=== PATIENT | female | born 1945 | race Caucasian/White ===

== ENCOUNTER 2020-10-09 19:54 | Emergency (ER) | payer MEDICARE ==
[~2020-10-09] VITALS: Ht 152.4 cm; Wt 37.0 kg
[~2020-10-09 19:54] MED LIST: APIX5TAB PO; BUTA1CAP28 PO; DOCU-131 PO; ERGO500017 PO; FLUD0.1T PO; HYDR-2214 PO; NITR0.6T4 SL; OMEP-110 PO; albuterol
--- NOTE | 2020-10-09 20:03 | NUR ---
Bib by [place] from home for single coughing fit with bloody sputum (on eliquis for pe diagnosed 1 week ago) ecg on arrival vss on equipment monitor phototypesetting pox 94% on home 2.5 liters
[2020-10-09 20:58] LABS: BASOPHILS % (AUTO) 1 % (0-1); EOSINOPHILS % (AUTO) 2 % (1-7); LYMPHOCYTES % (AUTO) 19 % (22-44); MEAN CORPUSCULAR HEMOGLOBIN 31.7 pg (27.0-34.8); MEAN CORPUSCULAR HGB CONC 33.1 g/dL (32.4-35.8); MEAN PLATELET VOLUME 7.1 fL (7.4-10.4); MONOCYTES % (AUTO) 10 % (2-9); NEUTROPHILS % (AUTO) 68 % (42-75); PLATELET COUNT 264 x10^3/uL (130-400); RED BLOOD COUNT 3.04 x10^6/uL (3.82-5.3); RED CELL DISTRIBUTION WIDTH 12.1 % (9.6-15.2)
[2020-10-09] MEDS ORDERED: DOXYCYCLINE 100 MG in DEXTROSE 5% 250 ML IV SCH (21:00)
[2020-10-09] MEDS ORDERED: CEFTRIAXONE 1,000 MG in DEXTROSE 5% 50 ML IVPB ONE (21:00)
[2020-10-09 21:05] LABS: MD NO
[2020-10-09 21:08] LABS: ALANINE AMINOTRANSFERASE 19 U/L (12-78); ALBUMIN 2.4 g/dL (3.4-5.0); ANION GAP 1 mmol/L (5-15); CALCIUM 8.2 mg/dL (8.5-10.1); CHLORIDE 98 mmol/L (98-107); CREATININE 0.67 mg/dL (0.55-1.02)
[2020-10-09 21:10] LABS: ALKALINE PHOSPHATASE 114 U/L (45-117); BILIRUBIN,TOTAL 0.1 mg/dL (0.2-1.0); TOTAL PROTEIN 8.6 g/dL (6.4-8.2)
[2020-10-09 21:14] LABS: INTERNATIONAL NORMALIZED RATIO 1.05 (0.93-1.1); PROTHROMBIN TIME 11.2 Seconds (9.6-11.5)
[2020-10-09] MEDS ORDERED: BENZONATATE 100 MG CAPSULE ONE (21:25)
[2020-10-09] MEDS ORDERED: DOXYCYCLINE 100MG TABLET ONE (21:25)
[2020-10-09] MEDS ORDERED: DOXYCYCLINE 100MG TABLET PO ONE (21:30)
[2020-10-09] MEDS ORDERED: BENZONATATE 100 MG CAPSULE PO ONE (21:30)
[2020-10-09 21:45] VITALS: BP 129/73
== END 2020-10-09 21:48 | disposition home or self-care (01) ==
LOC: ED 21:15
DX: R04.2 Hemoptysis (principal); J18.9 Pneumonia, unspecified organism; R07.9 Chest pain, unspecified; I48.91 Unspecified atrial fibrillation; Z87.891 Personal history of nicotine dependence
CPT/HCPCS: 36415; 71045; 80053; 84145; 85025; 85610; 85730; 93005; 99285